=== PATIENT | male | born 1990 | race African-American/Black ===

== ENCOUNTER → 2016-09-19 | Outpatient (CLI) | payer OTHER ==
--- NOTE | 2016-09-19 11:14 | RADIOLOGY REPORT (SQ) ---
EXAM DESCRIPTION: DUPLEX ART/DERIC FLOW COMPLETE COMPLETED DATE/TIME: 09/19/2016 10:47 am REASON FOR STUDY: HTN/HONEY I70.1 ATHEROSCLEROSIS OF RENAL ARTERY COMPARISON: None. TECHNIQUE: Realtime and static grayscale images acquired. Selected color Doppler, velocities and spe ctral images recorded. LIMITATIONS: Renal artery origins difficult Doppler at the origins off the aorta FINDINGS: RIGHT KIDNEY: RENAL ARTERY VELOCITIES: At the hilum, 58 cm/sec. Segmental artery velocity 59 cm/sec. RENAL VEIN: Color doppler flow present, patent. VELOCITY RATIO: 0.7. Normal waveforms. KIDNEY: 9.6 cm in length with mild diffuse increased cortical echogenicity and diffuse cortical th inning LEFT KIDNEY: RENAL ARTERY VELOCITIES: At the hilum, 80 cm/sec. Segmental artery velocity 77 cm/sec. RENAL VEIN: Color doppler flow present, patent. VELOCITY RATIO: 1.0. Normal waveforms. KIDNEY: 9.9 cm in length with mild diffuse increased cortical echogenicity and diffuse cortical th inning BLADDER: Decompressed, no bladder calculi OTHER: No other significant finding. IMPRESSION: NO DOPPLER EVIDENCE OF HEMODYNAMICALLY SIGNIFICANT RENAL ARTERY STENOSIS. SMALL KIDNEYS WITH MILD INCREASED CORTICAL ECHOGENICITY, CORRELATE FOR MEDICAL RENAL DISEASE COMMENT: NORMAL RENAL ARTERY/AORTA VELOCITY RATIO IS LESS THAN OR EQUAL TO 3.5. TECHNICAL DOCUMENTATION: JOB ID: [id number] [employer]- All Rights Reserved
== END ==
LOC: RAD 09:50
PROVIDERS: ATTEND General Practice
DX: I70.1 Atherosclerosis of renal artery (principal)
CPT/HCPCS: 93975